=== PATIENT | male | born 1980 | race African-American/Black ===

== ENCOUNTER 2020-03-23 04:25 | Emergency (ER) | payer OTHER ==
[~2020-03-23] VITALS: Ht 180.3 cm; Wt 75.5 kg
[2020-03-23] MEDS ORDERED: AZITHROMYCIN 500 MG TABLET PO ONE (05:30)
[2020-03-23] MEDS ORDERED: BENZONATATE 100 MG CAPSULE PO ONE (05:30)
[2020-03-23 05:43] VITALS: BP 136/84
== END 2020-03-23 06:18 | disposition home or self-care (01) ==
LOC: EMS 04:26
DX: J40 Bronchitis, not specified as acute or chronic (principal); Z20.822 Contact with and (suspected) exposure to COVID-19
CPT/HCPCS: 71045; 93005; 99285; A9575; U0003

== ENCOUNTER 2021-11-27 16:06 | Emergency (ER) | payer OTHER ==
[~2021-11-27] VITALS: Ht 180.3 cm; Wt 75.5 kg
[2021-11-27 19:39] VITALS: BP 132/69
[2021-11-27] MEDS ORDERED: PERTUSS(ACELL),DIPH,TET VAC/PF 0.5 ML SYRINGE IM. ONE (19:45)
== END 2021-11-27 20:30 | disposition home or self-care (01) ==
LOC: EMS 16:24
DX: S01.91XA Laceration without foreign body of unspecified part of head, initial encounter (principal); Y09 Assault by unspecified means; Y93.89 Activity, other specified; Y92.89 Other specified places as the place of occurrence of the external cause; Y99.8 Other external cause status
CPT/HCPCS: 90471; 90715; 99283

== ENCOUNTER 2023-04-13 07:52 | Emergency (ER) | payer OTHER ==
[~2023-04-13] VITALS: Ht 175.3 cm; Wt 72.7 kg
[2023-04-13 07:54] VITALS: BP 126/69; PULSE 80; RESP 16; TEMP 99
[2023-04-13] MEDS ORDERED: AMOX250C4 PO (08:51)
[2023-04-13] MEDS: TraMADol HCL 50 MG TABLET PO ONE (08:58)
== END 2023-04-13 09:08 | disposition home or self-care (01) ==
LOC: EMS 07:54
DX: K08.89 Other specified disorders of teeth and supporting structures (principal)
CPT/HCPCS: 99283